=== PATIENT | female | born 1965 | race Caucasian/White ===

== ENCOUNTER 2024-11-30 08:37 | Emergency (ER) | payer BC ==
--- OUTSIDE RECORDS SUMMARY | 2024-11-30 08:40 | XMS REPORT | Continuity of Care Document ---
Author Name Unknown Address [address] [facility] [place] [address] Organization [facility] Address [address] [facility] [place] [address] Care Team Providers Care Technician Automated Equipment Name Role Phone SIVA BOBO Primary Care Physician UnavailKARTIK Chao Attending Clinician Unavailable Kartik Murrell Attending Clinician [phone] Unknown, Attending Attending Clinician Unavailab JORGE L Miller Attending Clinician Unavailable Desean Avila Attending Clinician Unavailable Desean Avila Admitting Clinician Unavailable Payers Payer Name Policy Type Policy Number Effective Date Expirati on Date Source [facility] [id number] 2018 00:00:00 Allergies, Adverse Reactions, Alerts Allergy Name Allergy Type Status Severity Reaction(s) Onset Date Inactive Date Treating Clinician Comments Source No Known Allergie s DA Active [facility] 08[facility] 00[facility] No Known Allergie s DA Active U 08-24 00:[facility]: 00 [facility] NO KNOWN ALLERGIE S Drug Class Active [facility] Social History Social Habit Start Date Stop Date Quantity Comments Source Sexual orientation [facility] Sex assigned at 1965 00:00:00 1965 00:00:00 [facility] Smoking Status Start Date Stop Date Source Tobacco smoking consumption unknown [facility] Immunizations Ordered Immunization Name Filled Immunization Name Date Status Comments Source SARS-COV-2 COVID-19 PFIZER VACCINE Unknown Completed [facility] Vital Signs Vital Name Observation Time Observation Value Comments S ource Systolic blood pressure 2023-08-19 15:32:00 120 mm[Hg] [facility] Diastolic blood pressure 2023-08-19 15:32:00 88 mm[Hg] [facility] Heart rate 2023-08-19 15:32:00 108 /min [facility] Body temperature 2023-08-19 15:32:00 36.44 Stacy [facility] Respiratory rate 2023-08-19 15:32:00 20 /min [facility] Body height 2023-08-19 15:32:00 162.6 cm [facility] Body weight 2023-08-19 15:32:00 119.795 kg [facility] BMI 2023-08-19 15:32:00 45.33 kg/m2 [facility] Oxygen saturation in Arterial blood by Pulse oximetry 2023-08-19 15:32:00 95 /min [facility] Procedures Procedure Date / Time Performed Performing Clinicia n Source POCT URINALYSIS 2023-08-19 15:30:00 Kartik Matthews [facility] Encounters Start Date/Time End Date/Time Encounter Type Admission Type Attending Clinicians Care Facility Care Department Encounter ID Source 2023-08-19 10:00:00 2023-08-19 10:41:18 Outpatient R KARTIK MATTHEWS [facility] [id number] [facility] 2023-08-19 10:00:00 2023-08-19 10:20:00 Urgent Care Kartik Matthews Unknown, Attending [facility] MELODY?JULIACathleen [facility] [id number] [facility] 2022-12-08 08:25:00 2022-12-08 12:08:00 Emergency E JORGE L EUBANKS [facility] [id number] [facility] 2020-08-27 20:32:00 2020-08-28 13:59:00 Inpatient RAF AustinDesean [facility].01 [id number] [facility] 2020-08-24 12:23:00 2020-08-24 12:23:00 Outpatient Avila, Desean [facility] [id number] [facility] Results Test Description Test Time Test Comments Results Result Co mments Source [facility]- XR FLUOROSCOPY 0-60 [id number] 08:58:00 [facility] 1965 Sex: F Name:JOSE R LIAO [facility] : 1965 Age/S: 55 / F [id number] Unit #: [id number] Loc: [place] [address] Phys: Desean Avila MD Acct: [id number] Dis Date: Status: ADM IN PHONE #: [phone] Exam Date: 08/27/2020 1800 FAX #: Reason: CALCANEAL PLATE REMOVAL EXAMS: CPT: [id number] FLUOROSCOPY 0-60 MIN 30232 Fluoro Time: 4 SEC DAP (Gy m2): Air Kerma (mGy): C3 TIME OF STUDY: 01/2021 2:33 PM REASON FOR EXAM: CALCANEAL PLATE REMOVAL COMPARISON: None. FINDINGS: 2 coned-down intraoperative fluoroscopic views of the calcaneus demonstrate postoperative changes of plate and screw removal. The soft tissues and osseous structures are suboptimally evaluated secondary to fluoroscopic technique. Fluoroscopy time: 4.9 seconds IMPRESSION: Intraoperative fluoroscopic views of calcaneal plate and screw removal. Please see operative report. at 0858 Reported and signed by: Pardeep Castro M.D. CC: Anup Hines DO; Desean Greene MD PAGE 1 Signed Report Name: JOSE R LIAO [facility] : 1965 Age/S: 55 / F [address] Unit #: [id number] Loc: [place] [address] Phys: Desean Avila MD Acct: [id number] Dis Date: Status: ADM IN PHONE #: [phone] Exam Date: 08/27/2020 1800 FAX #: Reason: CALCANEAL PLATE REMOVAL EXAMS: CPT: [id number] XR FLUOROSCOPY 0-60 MIN 87913 Fluoro Time: 4 SEC DAP (Gy m2): Air Kerma (mGy): (Continued) Technologist: Melba Epperson, RT(R) Trnscb Date/Time: 08/28/2020 (08) [email or web address] Orig Print D/T: S: 08/28/2020 (0902) PAGE 2 Signed ReportSED RATE [id number] 16:14:00* Test Item Value Reference Range Interpretation Comme nts SED RATE ERGREN (test co de = SEDW) 12 mm/hr 0-20 N CBC W/AUTO [id number] 16:14:00* Test Item Value Reference Range Interpretation Comme nts WHITE BLOOD CELL (test code = WBC) 8.0 K/mm3 3.5-11.0 N RED BLOOD CELL (test code = RBC) 4.71 M/mm3 4.70-6.10 N HEMOGLOBIN (test code = HGB) 14.1 G/DL 10.4-14.9 N HEMATOCRIT (test code = HCT) 44.7 % 31.5-44.1 H MEAN CELL VOLUME (test code = MCV) 94.9 Fl 84.5-98.6 N MEAN CELL HGB (test code = MCH) 29.9 pg 27.0-34.2 N MEAN CELL HGB CONCETRATION (test code = MCHC) 31.5 G/DL 31.5-34.0 N RED CELL DISTRIBUTION WIDTH (test code = RDW) 13.8 SD 11.5-14.5 N PLATELET COUNT (test code = PLT) 348 K/mm3 150-450 N MEAN PLATELET VOLUME (test c ode = MPV) 9.30 fL 7.0-10.5 N NEUTROPHIL % (test code = NT%) 67.1 % 40-76 N IMMATURE GRANULOCYTE % (test code = IG%) 0.4 % 0.0-5.0 N LYMPHOCYTE % (test code = LY%) 23.5 % 20.5-51.1 N MONOCYTE % (test code = MO%) 6.8 % 1.7-9.3 N EOSINOPHIL % (test code = EO%) 1.6 % 0.0-6.0 N BASOPHIL % (test code = BA%) 0.6 % 0.0-2.0 N NUCLEATED RBC % (test code = NRBC%) 0.0 /100WBC% 0.0-1.0 N NEUTROPHIL # (test code = NT#) 5.3 K/mm3 1.8-7.6 N IMMATURE GRANULOCYTE # (test code = IG#) 0.03 x10 3/uL 0.00-0.03 N LYMPHOCYTE # (test code = LY#) 1.9 K/mm3 0.6-3.2 N MONOCYTE # (test code = MO#) 0.5 K/mm3 0.3-1.1 N EOSINOPHIL # (test code = EO#) 0.1 K/mm3 0.0-0.4 N BASOPHIL # (test code = BA#) 0.1 K/mm3 0.0-0.1 N NUCLEATED RBC # (test code = NRBC#) 0.0 K/mm3 0.0-0.1 N MANUAL DIFF REQUIRED (test c ode = MDIFF) NO DIFF/SCN CRITERIA SED [id number] 16:14:00* Test Item Value Reference Range Interpretation Comme nts SED RATE (test code = SEDW) 12 mm/hr 0-20 C REACTIVE [id number] 12:53:00* Test Item Value Reference Range Interpretation Comme nts C REACTIVE PROTEIN (test cod e = CRP) 1.720 MG/DL 0.000-0.3 H BASIC METABOLIC [id number] 12:46:00* Test Item Value Reference Range Interpretation Comme nts SODIUM (test code = NA) 136 mmol/L 134-147 N POTASSIUM (test code = K) 4.1 mmol/L 3.4-5.0 N CHLORIDE (test code = CL) 105 mmol/L 100-108 N CARBON DIOXIDE (test code = CO2) 26 mmol/L 21-32 N ANION GAP (test code = GAP) 5.0 GAP calc 4.0-15.0 N GLUCOSE (test code = GLU) 88 MG/DL 70-110 N BLOOD UREA NITROGEN (test co de = BUN) 16 MG/DL 7-18 N GLOMERULAR FILTRATION RATE ( test code = GFR) 45 estGFR >60 L CREATININE (test code = CREAT) 1.3 MG/DL 0.6-1.0 H CALCIUM (test code = CA) 9.1 MG/DL 8.5-10.1 N - XR CHEST 1 [id number] 12:28:00 [facility] 1965 Sex: F Name:JOSE R LIAO [facility] : 1965 Age/S: 55 / F [address] Unit #: [id number] Loc: [place] [address] Phys: Delaney Finney MD Acct: [id number] Dis Date: Status: PRE [facility] PHONE #: [phone] Exam Date: 08/24/2020 1200 FAX #: Reason: PRE-OP EXAMS: CPT: [id number] XR CHEST 1 V 20918 Fluoro Time: DAP (Gy m2): Air Kerma (mGy): EXAMINATION: Frontal chest radiograph INDICATION: PRE- OP, T844.9XXA, M79.671 COMPARISON: None LOCATION: S17 FINDINGS: Clear lungs. No pleural effusion orpneumothorax. Cardiac silhouette is mildly enlarged. IMPRESSION: No acute abnormality identified. at 1228 Reported and signed by: Donn Martino M.D. CC: Desean Avila MD; Delaney Finney MD PAGE 1 Signed Report Name: JOSE R LIAO [facility] : 1965 Age/S: 55 / F [address] Unit #: [id number] Loc: [place] [address] Phys: Delaney Finney MD Acct: [id number] Dis Date: Status: PRE SDC PHONE #: [phone] Exam Date: 08/24/2020 1205 FAX #: Reason: PRE-OP EXAMS: CPT: [id number] XR CHEST 1 V 89008 Fluoro Time: DAP (Gy m2): Air Kerma (mGy): (Continued) Technologist: Dedrick Schmidt RT(R)(CT) Trnscb Date/Time: 08/24/2020 (1228) [email or web address] Orig Print D/T: S: 08/24/2020 (5853) PAGE 2 Signed ReportCBC W/AUTO [id number] 12:22:00* Test Item Value Reference Range Interpretation Comme nts WHITE BLOOD CELL (test code = WBC) 8.0 K/mm3 3.5-11.0 N RED BLOOD CELL (test code = RBC) 4.71 M/mm3 4.70-6.10 N HEMOGLOBIN (test code = HGB) 14.1 G/DL 10.4-14.9 N HEMATOCRIT (test code = HCT) 44.7 % 31.5-44.1 H MEAN CELL VOLUME (test code = MCV) 94.9 Fl 84.5-98.6 N MEAN CELL HGB (test code = MCH) 29.9 pg 27.0-34.2 N MEAN CELL HGB CONCETRATION (test code = MCHC) 31.5 G/DL 31.5-34.0 N RED CELL DISTRIBUTION WIDTH (test code = RDW) 13.8 SD 11.5-14.5 N PLATELET COUNT (test code = PLT) 348 K/mm3 150-450 N MEAN PLATELET VOLUME (test c ode = MPV) 9.30 fL 7.0-10.5 N NEUTROPHIL % (test code = NT%) 67.1 % 40-76 N IMMATURE GRANULOCYTE % (test code = IG%) 0.4 % 0.0-5.0 N LYMPHOCYTE % (test code = LY%) 23.5 % 20.5-51.1 N MONOCYTE % (test code = MO%) 6.8 % 1.7-9.3 N EOSINOPHIL % (test code = EO%) 1.6 % 0.0-6.0 N BASOPHIL % (test code = BA%) 0.6 % 0.0-2.0 N NUCLEATED RBC % (test code = NRBC%) 0.0 /100WBC% 0.0-1.0 N NEUTROPHIL # (test code = NT#) 5.3 K/mm3 1.8-7.6 N IMMATURE GRANULOCYTE # (test code = IG#) 0.03 x10 3/uL 0.00-0.03 N LYMPHOCYTE # (test code = LY#) 1.9 K/mm3 0.6-3.2 N MONOCYTE # (test code = MO#) 0.5 K/mm3 0.3-1.1 N EOSINOPHIL # (test code = EO#) 0.1 K/mm3 0.0-0.4 N BASOPHIL # (test code = BA#) 0.1 K/mm3 0.0-0.1 N NUCLEATED RBC # (test code = NRBC#) 0.0 K/mm3 0.0-0.1 N MANUAL DIFF REQUIRED (test c ode = MDIFF) NO DIFF/SCN CRITERIA SED [id number] 12:22:00* Test Item Value Reference Range Interpretation Comme nts SED RATE (test code = SEDW) mm/hr 0-30 Notes Date/Time Note Provider Source 2020-08-28 10:54:00 [facility] ([facility]) Hospitalist History Physical REPORT#:[id number] REPORT STATUS: Signed DATE:08/28/20 TIME:1054 PATIENT: JOSE R LIAO UNIT #: [id number] ROOM/BED: [place] [address] : [birth year] AGE: 55 SEX: F ATTEND: Desean Avila MD ADM AUTHOR: Reza Wilson MD * ALL edits or amendments must be made on the electronic/computer document * History of Present Illness HPI Chief complaint: Intractable nausea and vomiting HPI: 55-year-old female with past medical history of hypertension, hyperlipidemia who underwent Removal of the calcaneal plate with 2 additional lag screws and a total of 8 screws through the plate. The pt was very nauseated with numerous episodes of emesis, and was admitted for postoperative monitoring. Denies any fever or chills No chest pain or shortness of breath Associated with nausea and multiple episodes of vomiting No hematemesis or no melena History Past Medical Surgical Hx Additional medical history: Hypertension, hyperlipidemia Additional surgical history: Status post Removal of the calcaneal plate Family History Family history: Reports: Hypertension. Social History Smoking status: Smoking status for patients 13 years old or older: Never Smoker Medication/Allergy-Vaccine Hx Allergies: Coded Allergies: No Known Allergies (08/24/20) Review of Systems Free Text ROS Notes Free Text ROS Notes: All the 14 point review of systems negative except for those mentioned in HPI Physical Exam VS/I O: Vital Signs Date Temp Pulse Resp B/P B/P Mean Pulse Ox FiO2 08/27-08/28 97.5-98.4 65-94 14-19 94-119/55-69 71.2-80.7 95-100 Last Documented: Result Date Time Pulse Ox 95 08/28 1027 B/P 94/60 08/28 1027 B/P Mean 71.2 08/28 1027 O2 Delivery Room air 08/28 1027 Temp 98.4 08/28 1027 Pulse 72 08/28 1027 Resp 14 08/28 1027 O2 Flow Rate 2 08/277 24 hour I O ending at 0700: 08/28 0700 08/27 1900 Intake Total 150.00 Output Total 100 Balance 50.00 Intake, IV 100.00 Intake, Oral 50 Number Voids 1 Output, 100 Emesis Patient Weight and BMI Weight (kg): 106.818 BMI: 39.2 Physical Exam General appearance: alert, awake, oriented HEENT : normocephalic ,Atraumatic Eyes: Eyes normal inspection. ENT: Dry mucous membranes present. Neck: Normal inspection. Neck supple. CVS: Normal heart rate and rhythm. Heart sounds normal. Respiratory: No respiratory distress. Breath sounds normal. Abdomen: Soft and nontender. Genitourinary: no bladder distention Back: Normal inspection. Skin: Skin warm. Normal skin color. No rash. Extremities: No lower extremity edema., Decreased ROM Neuro: Oriented X 3. No motor deficit No generalized lymph adenopathy Psych normal affect Results Radiology data: Recent Impressions: RADIOLOGY - XR FLUOROSCOPY 0-60 MIN 08/27 1645 Report Impression - Status: SIGNED Entered: 08/28/2020901 IMPRESSION: Intraoperative fluoroscopic views of calcaneal plate and screw removal. Please see operative report. Impression By: Corwin Castro M.D. Diagnosis, Assessment Plan Free Text A P: Status post Removal of the calcaneal plate and screws Hypertension Hyperlipidemia plan Monitor under telemetry Zofran as needed IV hydration N.p.o. for now Continue home medications and titrate as needed Pain control Appreciate help from orthopedics Possible DC once vomiting subsided GI/DVT prophylaxis Advanced directive full code at 1147 RPT #: [id number] END OF REPORT [facility] 2020-08-28 09:56:00 [facility] ([facility]) Orthopaedic Progress Note REPORT#:[id number] REPORT STATUS: Signed DATE:08/28/20 TIME:955 PATIENT: JOSE R LIAO UNIT #: [id number] ROOM/BED: [place] [address] : [birth year] AGE: 55 SEX: F ATTEND: Desean Avila MD ADM AUTHOR: Desean Avila MD * ALL edits or amendments must be made on the electronic/computer document * Subjective Chief complaint: pt was very nauseated with numerous episodes of emesis, now better, dressing drainage secondary to screw holes in the bone rec 1-2 weeks to clinic, any problems call 08/09 at 0958 [facility] #: [id number] END OF REPORT [facility] 2020-08-27 18:14:00 [id number] [facility] [address] [place] [address] PATIENT NAME: JOSE R LIAO ADMIT DATE: 08/27/20 ACCOUNT NO: [id number] ROOM NO: L.S208 AGE: 55 REPORT TYPE: OPERATIVE REPORT SEX: F ADMITTING PHYSICIAN: Desean Avila MD ATTENDING PHYSICIAN: Desean Avila MD OPERATION DATE: 08/27/2020 SURGEON: Desean Avila MD BLOOD COORDINATOR: Hedy Boudreaux. PREOPERATIVE DIAGNOSIS: The patient with right painful calcaneal hardware. POSTOPERATIVE DIAGNOSIS: The patient with right painful calcaneal hardware. PROCEDURE: Removal of the calcaneal plate with 2 additional lag screws and a total of 8 screws through the plate. C-arm was used throughout the case. ANESTHESIA: General. ESTIMATED BLOOD LOSS: Minimal. COMPLICATIONS: None. PROCEDURE IN DETAIL: The patient was put supine with the right hip bumped up. The right leg was sterilely prepped and draped in the usual manner. We did use the tourniquet and went ahead and did the previous L-type incision through the previous incision and kind of raised up the skin flap over the area of the plate. There was some lock screws as well as some Hex screws, and we removed all those and removed the plate without difficulty. There were 2 lag screws and removed those. Those were 4.0 cannulated screws. Those were removed as well. We did send cultures of some tissue from posterior calcaneus, and we did copious amount of irrigation. We went ahead and did modified Donati 2-0 nylon and removed and that brought the skin edges together. The patient had sterile dressing placed, was extubated, and taken to the recovery room in good condition. Dictated By: Desean Avila MD WT: OP:LLORNE/JIMENEZ/BJORN Conf#: [id number]/DID#: [id number] Authenticated by Desean Avila MD On 08/27/2020 09:48:24 PM PATIENT NAME: JOSE R LIAO at 2148 PATIENT NAME: JOSE R LIAO [facility] 2020-08-24 10:59:00 [id number] [place] [address] PATIENT NAME: JOSE R LIAO ADMIT DATE: 08/27/20 ACCOUNT NO: [id number] ROOM NO: [facility] AGE: 55 REPORT TYPE: eELECTROCARDIOGRAM SEX: F ADMITTING PHYSICIAN: Desean Avila MD ATTENDING PHYSICIAN: Desean Avila MD Order: [id number] Test Reason : PRE-OP Test Date/Time Stamp: ThuAug 24 2020 10:59:42 Blood Pressure : / mmHG Vent. Rate : 079 BPM Atrial Rate : 079 BPM P-R Int : 150 ms QRS Dur : 096 ms QT Int : 386 ms P-R-T Axes : 042 012 020 degrees QTc Int : 442 ms Normal sinus rhythm Low voltage QRS Incomplete right bundle branch block Borderline ECG No previous ECGs available Confirmed by Michael Ackerman ([id number]) on 09/02/2020 9:22:38 AM Referred By: Desean Avila Confirmed by:Michael Ackerman at 0922 PATIENT NAME: JOSE R LIAO [facility]
[2024-11-30] MEDS ORDERED: HYDROCODONE/APAP 5/325 MG TAB ONE (09:13)
[2024-11-30] MEDS ORDERED: NA CHLORIDE 0.9% 50 ML ONE (09:14)
[2024-11-30] MEDS ORDERED: DIAZEPAM 5 MG TABLET ONE (09:14)
[2024-11-30 09:25] LABS: Absolute Lymphocytes (CBC) 1.4 K/uL (0.7-4.9); Hematocrit 42.5 % (36.0-45.0); Hemoglobin 14.0 g/dL (12.0-15.0); MCH 27.6 pg (27.0-35.0); MCHC 32.8 g/dL (32.0-36.0); MCV 84.0 fL (80-100); MPV 7.5 fL (7.6-11.3); Nucleated RBC Absolute Count 0.0 (0-0); Nucleated Red Blood Cells % 0.1 % (0-0); RBC Red Blood Cell Count 5.07 M/uL (3.86-4.86); White Blood Count 6.50 thou/uL (4.3-10.9)
[2024-11-30 09:28] LABS: Urine Culture Reflex Order NOT NEEDED; Urine Microscopic Reflex YN ORDER UMIC; Urine Yeast (Budding) Trace /HPF (None Seen)
[2024-11-30 09:40] LABS: Anion Gap 9.8 mEq/L (5.0-15.0); BUN Blood Urea Nitrogen 14.0 mg/dL (7-18); Glucose Level 113.0 mg/dL (74-106); Potassium 3.8 mEq/L (3.5-5.1)
--- NOTE | 2024-11-30 10:01 | ER ---
Nurse's Notes [facility] Name: Josy Hector Age: 59 yrs Sex: Female : 1965 Arrival Date: 11/30/2024 Time: 08:37 Bed 20 Private MD: Diagnosis: Sciatica, right side Presentation: 11/30 08:48 Chief complaint: Patient states: R side lower back pain started Thursday while at work. ll1 Started to feel better yesterday, but pain returned at midnight. No known fever. Noticed urinary frequency throughout the night. Coronavirus screen: Client denies travel out of the [place] in the last 14 days. At this time, the client does not indicate any symptoms associated with coronavirus-19. Ebola Screen: Patient denies travel to an Ebola-affected area in the 21 days before illness onset. Initial Sepsis Screen: Does the patient meet any 2 criteria? No. Patient's initial sepsis screen is negative. Does the patient have a suspected source of infection? No. Patient's initial sepsis screen is negative. Risk Assessment: Do you want to hurt yourself or someone else? Patient reports no desire to harm self or others. Onset of symptoms was November 28, 2024. 08:48 Method Of Arrival: Ambulatory ll1 08:48 Acuity: ERIN 3 ll1 Triage Assessment: 08:50 General: Appears uncomfortable, Behavior is calm, cooperative, appropriate for age. ll1 Pain: Complains of pain in R lower back Quality of pain is described as aching. : Reports urinary frequency. Musculoskeletal: Reports pain in back. Historical: - Allergies: 08:45 No Known Drug Allergies; ll1 - PMHx: 08:45 Hypertension; ll1 - PSHx: 08:45 para thyroid tumor removed (Hypertension); R foot reconstruction (Hypertension); ll1 - Immunization history:: Adult Immunizations up to date. - Infectious Disease History:: Denies. - Social history:: Smoking status: Patient denies any tobacco usage or history of. Screenin:58 [facility] ED Fall Risk Assessment (Adult) History of falling in the last 3 months, ll1 including since admission No falls in past 3 months (0 pts) Confusion or Disorientation No (0 pts) Intoxicated or Sedated No (0 pts) Impaired Gait No (0 pts) Mobility Assist Device Used No (0 pt) Altered Elimination No (0 pt) Score/Fall Risk Level 0 - 2 = Low Risk Maintained a safe environment, Hourly rounding (assess needs \T\ fall precautionary measures) done. Abuse screen: Denies threats or abuse. Nutritional screening: No deficits noted. Tuberculosis screening: No symptoms or risk factors identified. Assessment: 09:31 Reassessment: No changes from previously documented assessment. Patient and/or family ll1 updated on plan of care and expected duration. Pain level reassessed. Patient is alert, oriented x 3, equal unlabored respirations, skin warm/dry/pink. 10:58 Reassessment: No changes from previously documented assessment. Patient and/or family ll1 updated on plan of care and expected duration. Pain level reassessed. Patient is alert, oriented x 3, equal unlabored respirations, skin warm/dry/pink. Patient states symptoms have improved. Vital Signs: 08:48 BP 152 / 103; Pulse 107; Resp 17; Temp 97.5; Pulse Ox 96% on R/A; Weight 115.67 kg; ll1 Height 5 ft. 5 in. ; Pain 10/10; 10:58 BP 133 / 90; Pulse 89; Resp 16; Pulse Ox 96% ; Pain 5/10; ll1 08:48 Body Mass Index 42.43 (115.67 kg, 165.1 cm) ll1 08:48 Pain Scale: Adult ll1 10:58 Pain Scale: Adult ll1 ED Course: 08:40 Patient arrived in ED. al6 08:44 Melba Joy [facility]C [facility] kb 08:44 Cody Atkins MD is Attending Physician. kb 08:45 Arm band placed on Patient placed in an exam room, on a stretcher. ll1 08:48 Jan Jimenez, SOUTH is Primary Nurse. ll1 08:50 Triage completed. ll1 08:50 Patient has correct armband on for positive identification. Bed in low position. 1 Provided Education on: ER procedures and process. 09:12 UA Rfx Herbie Cult if indicated Sent. ll1 09:18 Initial lab(s) drawn, by nj, sent to lab. Urine collected: clean catch specimen, clear. bp Inserted saline lock: 22 gauge in right forearm, using aseptic technique. Blood collected. Flushed with 10 mL NS. 10:59 No provider procedures requiring assistance completed. IV discontinued, intact, ll1 bleeding controlled, No redness/swelling at site. Pressure dressing applied. Administered Medications: 09:31 Drug: HYDROcodone-acetaminophen PO 5 mg-325 mg 1 tabs PO once Route: PO; 1 11:00 Follow up: Response: No adverse reaction; Pain is decreased; RASS: Alert and Calm (0) 1 09:31 Drug: Diazepam PO 5 mg PO once Route: PO; 1 11:00 Follow up: Response: No adverse reaction; Pain is decreased; RASS: Alert and Calm (0) 1 09:31 Drug: Decadron - Dexamethasone IVP 10 mg IVP once Route: IVP; Site: right forearm; 1 11:00 Follow up: Response: No adverse reaction ll1 Medication: 11:00 VIS not applicable for this client. 1 Outcome: 10:00 Discharge ordered by . kb 10:59 Discharged to home ambulatory, ll1 10:59 Condition: stable 10:59 Discharge instructions given to patient, Instructed on discharge instructions, follow up and referral plans. medication usage, Demonstrated understanding of instructions, follow-up care, medications, Prescriptions given X 2, 11:00 Patient left the ED. 1 Signatures: Melba Joy, BRIANNE GRIFFINP-Bradley Conti, RN RN Jan Guzman RN RN 1 Alma Hsu
--- NOTE | 2024-11-30 10:01 | EDPHYS ---
Physician Documentation [facility] Name: Josy Hector Age: 59 yrs Sex: Female : 1965 Arrival Date: 11/30/2024 Time: 08:37 Bed 20 Private MD: ED Physician Cody Atkins HPI: 11/30 09:04 This 59 yrs old Female presents to ER via Ambulatory with complaints of Low Back Pain. kb 09:04 Pt is a 59 year old female who presents for right low back pain that started 2 days ago kb while at work. States the pain was better yesterday while she rested on a heating pad, but returned at midnight last night. Denies urinary symptoms, injury, lifting heavy. States the pain started radiating to buttock and upper leg this morning. . Historical: - Allergies: 08:45 No Known Drug Allergies; ll1 - PMHx: 08:45 Hypertension; ll1 - PSHx: 08:45 para thyroid tumor removed (Hypertension); R foot reconstruction (Hypertension); ll1 - Immunization history:: Adult Immunizations up to date. - Infectious Disease History:: Denies. - Social history:: Smoking status: Patient denies any tobacco usage or history of. ROS: 09:02 Constitutional: As per HPI kb Exam: 09:02 Constitutional: This is a well developed, well nourished patient who is awake, alert, kb and in no acute distress. Head/Face: Normocephalic, atraumatic. ENT: Moist Mucous membranes Cardiovascular: Regular rate Respiratory: Respirations even and unlabored. No increased work of breathing. Talking in full sentences Abdomen/GI: Soft, non-tender. No distention Skin: Warm, dry with normal turgor. Normal color. MS/ Extremity: Pulses equal, no cyanosis. Neurovascular intact. Full, normal range of motion. Neuro: Awake and alert, GCS 15, oriented to person, place, time, and situation. 09:02 Back: pain, that is moderate, of the right low back, ROM is painful, normal spinal alignment noted, CVA tenderness, is absent, vertebral tenderness, is not appreciated, Vital Signs: 08:48 BP 152 / 103; Pulse 107; Resp 17; Temp 97.5; Pulse Ox 96% on R/A; Weight 115.67 kg; ll1 Height 5 ft. 5 in. ; Pain 10/10; 10:58 BP 133 / 90; Pulse 89; Resp 16; Pulse Ox 96% ; Pain 5/10; ll1 08:48 Body Mass Index 42.43 (115.67 kg, 165.1 cm) ll1 08:48 Pain Scale: Adult ll1 10:58 Pain Scale: Adult ll1 MDM: 08:44 Medical Screening Exam initiated kb 09:03 Data reviewed: vital signs, nurses notes. kb 09:59 Differential diagnosis: strain, fracture, sciatica, Herniated disc UTI. Counseling: I kb had a detailed discussion with the patient and/or guardian regarding the historical points, exam findings, and any diagnostic results supporting the discharge/admit diagnosis, lab results, the need for outpatient follow up, a family practitioner, to return to the emergency department if symptoms worsen or persist or if there are any questions or concerns that arise at home. 11/30 08:56 Order name: UA Rfx Herbie Cult if indicated; Complete Time: 09:30 kb 11/30 08:59 Order name: CBC with Diff; Complete Time: 09:30 kb 11/30 08:59 Order name: BMP; Complete Time: 09:42 kb 11/30 08:59 Order name: IV Start; Complete Time: 09:12 kb Administered Medications: 09:31 Drug: HYDROcodone-acetaminophen PO 5 mg-325 mg 1 tabs PO once Route: PO; ll1 11:00 Follow up: Response: No adverse reaction; Pain is decreased; RASS: Alert and Calm (0) ll1 09:31 Drug: Diazepam PO 5 mg PO once Route: PO; ll1 11:00 Follow up: Response: No adverse reaction; Pain is decreased; RASS: Alert and Calm (0) ll1 09:31 Drug: Decadron - Dexamethasone IVP 10 mg IVP once Route: IVP; Site: right forearm; ll1 11:00 Follow up: Response: No adverse reaction ll1 Disposition: 12/01 07:28 Co-signature as Attending Physician, Cody Atkins MD I agree with the assessment and mara plan of care. Disposition Summary: 11/30/24 10:00 Discharge Ordered Notes: Location: Home Condition: Stable kb Diagnosis - Sciatica, right side kb Followup: kb - With: Emergency Department - When: As needed - Reason: Worsening of condition Followup: kb - With: Private Physician - When: 2 - 3 days - Reason: Recheck today's complaints, Continuance of care, Re-evaluation by your physician Discharge Instructions: - Discharge Summary Sheet kb - Sciatica, [id number] kb - Back Exercises, [id number] kb Forms: - Medication Reconciliation Form kb - Antibiotic Education kb - Prescription Opioid Use kb - Patient Portal Instructions kb - Leadership Thank You Letter kb Prescriptions: - Prednisone 20 mg Oral Tablet - take 1 tablet ORAL route once daily for 5 days; 5 tablet; Refills: 0, Product kb Selection Permitted - orphenadrine citrate 100 mg Oral Tablet Sustained Release - take 1 tablet ORAL route 2 times per day As needed; 20 tablet; Refills: 0, kb Product Selection Permitted Signatures: Dispatcher [employer] EDMelba Ramirez, SIMONE-C SIMONE-Cody Pettit MD MD cha Lewis, Lynsay RN RN ll1 Corrections: (The following items were deleted from the chart) 11/30 08:56 08:56 UA Rfx Herbie Cult if indicated+U.LAB.BRZ ordered. EDMS EDMS 09:00 09:00 CBC+H.LAB.BRZ ordered. EDMS EDMS 09:00 09:00 BASIC METABOLIC PANEL+C.LAB.BRZ ordered. EDMS EDMS
[2024-11-30 11:18] VITALS: TEMP 97.5; O2SAT 96
[2024-11-30 11:24] VITALS: BP 133/90
== END 2024-11-30 11:00 | disposition home or self-care (01) ==
LOC: ER 08:37
DX: M54.31 Sciatica, right side (principal)
CPT/HCPCS: 85025; 81001; 80048; 36415; 96374; 99284; J1100